=== PATIENT | female | born 1995 | race Caucasian/White ===

== ENCOUNTER 2016-08-25 14:28 | Emergency (ER) | payer OTHER ==
[~2016-08-25] VITALS: Ht 157.4 cm; Wt 61.2 kg
[~2016-08-25 14:28] MED LIST: BACTRIM DS 8001 TA1 PO; CEPHALEXIN500 M1 PO; KEFLEX250 MG PO; MOTRIN400 MG PO; NKHM; ZOFRAN4 MG PO
[2016-08-25] MEDS ORDERED: PRENATAL ONE D1 EACH PO (14:57)
== END 2016-08-25 14:59 | disposition home or self-care (01) ==
LOC: ED 14:28
DX: Z32.01 Encounter for pregnancy test, result positive (principal)

== ENCOUNTER 2016-09-18 14:51 | Emergency (ER) | payer MEDICAID ==
[~2016-09-18 14:51] MED LIST changes: +PRENATAL ONE D1 EACH PO
[2016-09-18] MEDS ORDERED: ESCITALOPRAM OX10 MG PO (15:01)
[2016-09-18 15:45] LABS: BASO % 0.3 % (0.0-1.0); EOS % 0.3 % (1.0-4.0); HEMATOCRIT 35.4 % (37.0-47.0); LYMPH # 1.3 10*3/uL (1.3-4.4); LYMPH % 18.2 % (27.0-41.0); MEAN CELL VOLUME 92.2 fl (81.0-99.0); MEAN CORPUSCULAR HGB 31.3 pg (27.0-31.0); MEAN CORPUSCULAR HGB CONC 33.9 g/dl (33.0-37.0); MEAN PLATELET VOLUME 10.3 fl (9.6-12.3); MONO # 0.5 10*3/uL (0.1-1.0); MONO % 6.1 % (3.0-9.0); NEUT # 5.5 10*3/uL (2.3-7.9); NEUT % 74.8 % (47.0-73.0); PLATELET COUNT AUTOMATED 175 10*3/uL (130-400); RED BLOOD COUNT 3.84 10*6/uL (4.10-5.10); RED CELL DISTRI WIDTH 12.6 % (0-14.5); WHITE BLOOD COUNT 7.4 10*3/uL (4.8-10.8)
[2016-09-18 15:49] LABS: BILIRUBIN NEGATIVE (NEGATIVE); BLOOD NEGATIVE (NEGATIVE); CLARITY SL CLOUDY (CLEAR); COLOR YELLOW (YELLOW); GLUCOSE NEGATIVE (NEGATIVE); KETONE NEGATIVE (NEGATIVE); LEUKO ESTERASE NEGATIVE (NEGATIVE); NITRITE NEGATIVE (NEGATIVE); PH 5.5 (5.0-9.0); PROTEIN NEGATIVE (NEGATIVE); SPECIFIC GRAVITY >= 1.030 (1.005-1.030); UROBILINOGEN 0.2 E.U./dl (0.2-1.0)
[2016-09-18 15:55] LABS: BACTERIA 1+; EPITHELIAL CELLS 16-20; MUCOUS 2+
[2016-09-18 15:56] LABS: URINE REFLEX COMMENT YES (NO)
[2016-09-18 16:00] LABS: ALBUMIN 3.5 gm/dl (3.1-4.5); ALKALINE PHOSPHATASE 45 U/L (45-117); BILIRUBIN, TOTAL 0.3 mg/dl (0.2-1.0); BUN 11 mg/dl (7-24); CARBON DIOXIDE 25 mmol/L (21-32); CHLORIDE 107 mmol/L (98-107); EST GLOM FILT AFRICAN AMERICAN > 60 ml/min; GLUCOSE 88 mg/dL (65-99); MAGNESIUM 1.8 mg/dL (1.5-2.1); POTASSIUM 3.4 mmol/L (3.5-5.1); SGOT/AST 17 IU/L (3-35); SGPT/ALT 30 U/L (12-78); SODIUM 139 mmol/L (136-145); TOTAL PROTEIN 6.8 gm/dL (6.4-8.2)
[2016-09-18 16:01] LABS: C-REACTIVE PROTEIN < 0.29 MG/DL (0-0.3)
== END 2016-09-18 16:52 | disposition left against medical advice (07) ==
LOC: ED 14:51
PROVIDERS: Emergency Medicine
DX: Z32.01 Encounter for pregnancy test, result positive (principal); K21.9 Gastro-esophageal reflux disease without esophagitis

== ENCOUNTER 2016-12-28 21:02 | Emergency (ER) | payer SELFPAY ==
[~2016-12-28] VITALS: Ht 157.4 cm; Wt 61.2 kg
[~2016-12-28 21:02] MED LIST changes: +ESCITALOPRAM OX10 MG PO
[2016-12-28] MEDS ORDERED: AMOXICILLIN500 M2 PO (21:32)
[2016-12-28] MEDS ORDERED: TRIMOX,POL250 MG/5 M PO (22:05)
== END 2016-12-28 21:52 | disposition home or self-care (01) ==
LOC: ED 21:02
DX: O26.892 Other specified pregnancy related conditions, second trimester (principal); J01.00 Acute maxillary sinusitis, unspecified; J02.9 Acute pharyngitis, unspecified; K21.9 Gastro-esophageal reflux disease without esophagitis; Z79.899 Other long term (current) drug therapy; Z3A.24 24 weeks gestation of pregnancy

== ENCOUNTER 2017-09-18 14:18 | Emergency (ER) | payer OTHER ==
[~2017-09-18] VITALS: Ht 160 cm; Wt 52.2 kg
[~2017-09-18 14:18] MED LIST changes: +AMOXICILLIN500 M2 PO; +TRIMOX,POL250 MG/5 M PO
[2017-09-18 14:47] LABS: BILIRUBIN NEGATIVE (NEGATIVE); BLOOD 3+ (NEGATIVE); CLARITY TURBID (CLEAR); COLOR YELLOW (YELLOW); GLUCOSE NEGATIVE (NEGATIVE); KETONE TRACE (NEGATIVE); LEUKO ESTERASE 3+ (NEGATIVE); NITRITE NEGATIVE (NEGATIVE); PH 5.5 (5.0-9.0); SPECIFIC GRAVITY >= 1.030 (1.005-1.030)
[2017-09-18 14:57] LABS: BACTERIA 3+; EPITHELIAL CELLS TNTC; RBC TNTC rbc/hpf (0-2); WBC TNTC wbc/hpf (0-5)
[2017-09-18] MEDS ORDERED: PYRIDIUM200 M1 PO (15:04)
[2017-09-18] MEDS ORDERED: AMINOPHYLLIN200 MG PO (15:04)
[2017-09-18] MEDS ORDERED: CEFDINIR250 MG/5 M PO (15:34)
== END 2017-09-18 15:20 | disposition home or self-care (01) ==
LOC: ED 14:18
PROVIDERS: Emergency Medicine
DX: N39.0 Urinary tract infection, site not specified (principal); Z79.899 Other long term (current) drug therapy

== ENCOUNTER 2017-12-03 14:39 | Emergency (ER) | payer OTHER ==
[~2017-12-03] VITALS: Ht 157.4 cm; Wt 52.2 kg
[~2017-12-03 14:39] MED LIST changes: +AMINOPHYLLIN200 MG PO; +CEFDINIR250 MG/5 M PO; +PYRIDIUM200 M1 PO
[2017-12-03 15:02] LABS: BILIRUBIN NEGATIVE (NEGATIVE); BLOOD NEGATIVE (NEGATIVE); CLARITY CLEAR (CLEAR); COLOR YELLOW (YELLOW); GLUCOSE NEGATIVE (NEGATIVE); KETONE NEGATIVE (NEGATIVE); LEUKO ESTERASE TRACE (NEGATIVE); NITRITE NEGATIVE (NEGATIVE); SPECIFIC GRAVITY 1.025 (1.005-1.030); UROBILINOGEN 0.2 E.U./dl (0.2-1.0)
[2017-12-03 15:11] LABS: BACTERIA 1+; EPITHELIAL CELLS 21-30
[2017-12-03 15:12] LABS: WBC 41-50 wbc/hpf (0-5)
[2017-12-03] MEDS ORDERED: SEPTDS PO (15:29)
[2017-12-03] MEDS ORDERED: CEPHALEXIN250 MG/5 M PO (15:52)
== END 2017-12-03 15:49 | disposition home or self-care (01) ==
LOC: ED 14:39
PROVIDERS: Nurse Practitioner Family
DX: N39.0 Urinary tract infection, site not specified (principal); K21.9 Gastro-esophageal reflux disease without esophagitis; Z79.899 Other long term (current) drug therapy

== ENCOUNTER 2018-01-01 13:20 | Emergency (ER) | payer OTHER ==
[~2018-01-01] VITALS: Ht 157.4 cm; Wt 52.2 kg
[~2018-01-01 13:20] MED LIST changes: +CEPHALEXIN250 MG/5 M PO; +SEPTDS PO
[2018-01-01 13:41] LABS: BILIRUBIN NEGATIVE (NEGATIVE); BLOOD 1+ (NEGATIVE); CLARITY SL CLOUDY (CLEAR); COLOR YELLOW (YELLOW); GLUCOSE NEGATIVE (NEGATIVE); KETONE NEGATIVE (NEGATIVE); LEUKO ESTERASE 1+ (NEGATIVE); NITRITE NEGATIVE (NEGATIVE); PH 7.5 (5.0-9.0); SPECIFIC GRAVITY 1.015 (1.005-1.030); UROBILINOGEN 0.2 E.U./dl (0.2-1.0)
[2018-01-01 13:55] LABS: BACTERIA 2+; RBC 21-30 rbc/hpf (0-2); WBC TNTC wbc/hpf (0-5)
[2018-01-01] MEDS ORDERED: CEFUROXIME AXE500 MG PO (14:02)
[2018-01-01] MEDS ORDERED: CEPHALEXIN250 MG/5 M PO (15:23)
== END 2018-01-01 14:11 ==
LOC: ED 13:20
PROVIDERS: Nurse Practitioner Family
DX: N39.0 Urinary tract infection, site not specified (principal)

== ENCOUNTER 2018-07-05 11:46 | Emergency (ER) | payer OTHER ==
[~2018-07-05] VITALS: Ht 157.4 cm; Wt 52.2 kg
[~2018-07-05 11:46] MED LIST changes: +CEFUROXIME AXE500 MG PO
[2018-07-05 13:00] LABS: BILIRUBIN 1+ (NEGATIVE); BLOOD 1+ (NEGATIVE); CLARITY CLOUDY (CLEAR); COLOR YELLOW (YELLOW); GLUCOSE NEGATIVE (NEGATIVE); KETONE 1+ (NEGATIVE); LEUKO ESTERASE TRACE (NEGATIVE); NITRITE NEGATIVE (NEGATIVE); PH 5.5 (5.0-9.0); SPECIFIC GRAVITY >= 1.030 (1.005-1.030)
[2018-07-05 13:10] LABS: BACTERIA 2+; EPITHELIAL CELLS 15-20; MUCOUS 1+; WBC 21-30 wbc/hpf (0-5)
[2018-07-05] MEDS ORDERED: AUGMENTIN 875875 MG PO (14:42)
[2018-07-05] MEDS ORDERED: IBUPROFEN600 MG PO (14:42)
[2018-07-08] MEDS ORDERED: AUGMENTIN400 MG/5 M PO (16:28)
== END 2018-07-05 15:00 | disposition home or self-care (01) ==
LOC: ED
PROVIDERS: Physician Assistant
DX: J02.0 Streptococcal pharyngitis (principal); R30.0 Dysuria; M54.5 Low back pain; R35.0 Frequency of micturition; Z79.2 Long term (current) use of antibiotics

== ENCOUNTER 2018-09-26 08:47 | Emergency (ER) | payer OTHER ==
[~2018-09-26] VITALS: Wt 52.2 kg
[~2018-09-26 08:47] MED LIST changes: +AUGMENTIN 875875 MG PO; +AUGMENTIN400 MG/5 M PO; +IBUPROFEN600 MG PO
[2018-09-26 09:14] LABS: BILIRUBIN 1+ (NEGATIVE); BLOOD 3+ (NEGATIVE); CLARITY CLOUDY (CLEAR); GLUCOSE NEGATIVE (NEGATIVE); KETONE NEGATIVE (NEGATIVE); LEUKO ESTERASE 2+ (NEGATIVE); NITRITE NEGATIVE (NEGATIVE); SPECIFIC GRAVITY >= 1.030 (1.005-1.030); UROBILINOGEN 0.2 E.U./dl (0.2-1.0)
[2018-09-26 09:26] LABS: COLOR BROWN (YELLOW); RBC TNTC rbc/hpf (0-2)
[2018-09-26 09:28] LABS: BACTERIA 4+; WBC TNTC wbc/hpf (0-5)
[2018-09-26 09:29] LABS: EPITHELIAL CELLS 15-20
[2018-09-26] MEDS ORDERED: Bactrim 200 MG/30 ML PO (09:47)
[2018-09-26] MEDS ORDERED: PYRIDIUM200 M1 PO (09:50)
== END 2018-09-26 09:55 | disposition home or self-care (01) ==
LOC: ED 08:47
PROVIDERS: Emergency Medicine
DX: N39.0 Urinary tract infection, site not specified (principal); F17.200 Nicotine dependence, unspecified, uncomplicated

== ENCOUNTER 2018-12-19 11:54 | Emergency (ER) | payer OTHER ==
[~2018-12-19] VITALS: Ht 157.4 cm; Wt 50.8 kg
[~2018-12-19 11:54] MED LIST changes: +Bactrim 200 MG/30 ML PO
[2018-12-19] MEDS ORDERED: AUGMENTIN250 MG/5 M PO (12:49)
[2018-12-19] MEDS ORDERED: NAPROSYN500 MG PO (12:49)
== END 2018-12-19 13:15 | disposition home or self-care (01) ==
LOC: ED 11:54
DX: K04.7 Periapical abscess without sinus (principal); F17.200 Nicotine dependence, unspecified, uncomplicated

== ENCOUNTER 2018-12-28 13:26 | Emergency (ER) | payer OTHER ==
[~2018-12-28] VITALS: Ht 160 cm; Wt 49.9 kg
[~2018-12-28 13:26] MED LIST changes: +AUGMENTIN250 MG/5 M PO; +NAPROSYN500 MG PO
[2018-12-28] MEDS ORDERED: Bactrim 200 MG/30 ML PO (14:12)
[2018-12-28] MEDS ORDERED: NITROFURAN25 MG/5 M2 PO (14:16)
[2018-12-28 14:27] LABS: BILIRUBIN NEGATIVE (NEGATIVE); BLOOD 2+ (NEGATIVE); CLARITY SL CLOUDY (CLEAR); COLOR YELLOW (YELLOW); GLUCOSE NEGATIVE (NEGATIVE); KETONE NEGATIVE (NEGATIVE); LEUKO ESTERASE 1+ (NEGATIVE); NITRITE NEGATIVE (NEGATIVE); SPECIFIC GRAVITY 1.025 (1.005-1.030); UROBILINOGEN 0.2 E.U./dl (0.2-1.0)
[2018-12-28 14:44] LABS: BACTERIA 4+; EPITHELIAL CELLS 41-50; WBC TNTC wbc/hpf (0-5)
== END 2018-12-28 14:21 | disposition home or self-care (01) ==
LOC: ED 13:26
PROVIDERS: Emergency Medicine
DX: N39.0 Urinary tract infection, site not specified (principal); K21.9 Gastro-esophageal reflux disease without esophagitis

== ENCOUNTER 2019-11-06 21:26 | Emergency (ER) | payer OTHER ==
[~2019-11-06] VITALS: Ht 160 cm; Wt 50.8 kg
[~2019-11-06 21:26] MED LIST changes: +NITROFURAN25 MG/5 M2 PO
== END 2019-11-07 02:38 | disposition home or self-care (01) ==
LOC: ED 21:26
DX: S16.1XXA Strain of muscle, fascia and tendon at neck level, initial encounter (principal); M25.511 Pain in right shoulder; M54.6 Pain in thoracic spine; Z79.899 Other long term (current) drug therapy; V89.2XXA Person injured in unspecified motor-vehicle accident, traffic, initial encounter; Y93.89 Activity, other specified; Y92.89 Other specified places as the place of occurrence of the external cause; Y99.8 Other external cause status

== ENCOUNTER 2020-04-25 17:00 | Emergency (ER) | payer OTHER ==
[~2020-04-25] VITALS: Ht 160 cm; Wt 53.1 kg
[2020-04-25] MEDS ORDERED: ZITHROMAX250 MG PO (18:14)
[2020-04-25] MEDS ORDERED: DECADRON6 M1 PO (18:14)
[2020-04-25] MEDS ORDERED: ALBUTEROL2.5 MG/0.5 INH (18:14)
== END 2020-04-25 18:19 | disposition home or self-care (01) ==
LOC: ED 17:00
DX: J32.9 Chronic sinusitis, unspecified (principal); F17.200 Nicotine dependence, unspecified, uncomplicated; Z79.899 Other long term (current) drug therapy

== ENCOUNTER 2021-01-21 21:02 | Emergency (ER) | payer OTHER ==
[~2021-01-21 21:02] MED LIST changes: +ALBUTEROL2.5 MG/0.5 INH; +DECADRON6 M1 PO; +ZITHROMAX250 MG PO
[2021-01-21 21:37] LABS: BASO % 0.7 % (0.0-1.0); EOS # 0.1 10*3/uL (0.0-0.4); EOS % 1.3 % (1.0-4.0); HEMATOCRIT 35.5 % (37.0-47.0); MEAN CORPUSCULAR HGB 30.6 pg (27.0-31.0); MEAN CORPUSCULAR HGB CONC 33.2 g/dl (33.0-37.0); MONO # 0.4 10*3/uL (0.1-1.0); MONO % 6.8 % (3.0-9.0); NEUT # 3.2 10*3/uL (2.3-7.9); NEUT % 56.2 % (47.0-73.0); PLATELET COUNT AUTOMATED 192 10*3/uL (130-400); RED BLOOD COUNT 3.86 10*6/uL (4.10-5.10); RED CELL DISTRI WIDTH 11.9 % (0-14.5); WHITE BLOOD COUNT 5.6 10*3/uL (4.8-10.8)
[2021-01-21 21:53] LABS: ALBUMIN 3.4 gm/dl (3.1-4.5); ALKALINE PHOSPHATASE 54 U/L (45-117); BUN 15 mg/dl (7-24); CHLORIDE 108 mmol/L (98-107); CREATININE 0.81 mg/dL (0.55-1.02); LIPASE 90 U/L (73-393); POTASSIUM 3.6 mmol/L (3.5-5.1); SGOT/AST 10 IU/L (3-35); SGPT/ALT 15 U/L (12-78); SODIUM 142 mmol/L (136-145); TOTAL PROTEIN 6.9 gm/dL (6.4-8.2)
== END 2021-01-21 22:40 | disposition home or self-care (01) ==
LOC: ED 21:02
PROVIDERS: Internal Medicine
DX: R10.31 Right lower quadrant pain (principal)